=== PATIENT | female | born 1960 | race Caucasian/White ===

== ENCOUNTER → 2017-04-12 | Outpatient (CLI) | payer MEDICARE, MEDICAID ==
[~2017-04-12] MED LIST: ATEN-65 PO; BACDS PO; CIP500 PO; HYDR-2966 PO; LEFL10TA12 PO; LEFL20TA6 PO; LISI5TAB25 PO; LOR5 PO; METO50TA19 PO; OXYC-870 PO; PANT40TA65 PO; PENI-22 PO; POTA20TA94 PO; PRE10 PO; PRED-1 PO; PROM-110 PO; SULF500T48 PO
--- NOTE | 2017-04-12 10:32 | RADIOLOGY IMAGING REPORT ---
FACILITY: [facility] - [place] PATIENT NAME: Kourtney Huffman : 1960 MR: [id number] V: [id number] EXAM DATE: ORDERING PHYSICIAN: CRISTINA CROSS TECHNOLOGIST: [place] [facility] [place] Patient: Kourtney Huffman : 1960 Visit/Account:[id number] Date of Sevice: 04/12/2017 EXAMINATION: Abdominal ultrasound complete HISTORY: Five weeks vomiting off and on, diarrhea x4 weeks COMPARISON: None. FINDINGS: Gallbladder: There is a fixed shadowing calculus within the gallbladder the gallbladder wall is thick ened at 4.3 mm periods a positive Villela sign by technologist notation Liver: Liver appears extremely heterogeneous Common duct: Normal measuring 3.3 mm. Pancreas: Grossly unremarkable as imaged Spleen: Spleen appears extremely lobular and heterogeneous measuring 6.9 cm in length. Kidneys: Normal in size and echogenicity, the right measures 9.6 cm in length, and the left 10.6 cm. There is a moderate left hydronephrosis and a possible 1.2 cm calculus at the left UPJ Upper abdominal aorta and IVC: Negative. Ascites: None. IMPRESSION: Both the liver and spleen appear extremely heterogeneous There is a large fixed gallstone with a positive Villela sign and gallbladder wall thickening worrisom e for cholelithiasis with cholecystitis Moderate left hydronephrosis and possible 1.2 cm calculus at the left UPJ Report Dictated By: Gavi Rider MD at 04/12/2017 10:24 AM Report E-Signed By: Gavi Rider MD at 04/12/2017 10:29 AM WSN:[email or web address]
== END ==
LOC: US 09:08
PROVIDERS: ATTEND Nurse Practitioner Family
DX: K80.00 Calculus of gallbladder with acute cholecystitis without obstruction (principal); D73.89 Other diseases of spleen; K76.9 Liver disease, unspecified; N13.30 Unspecified hydronephrosis; R19.8 Other specified symptoms and signs involving the digestive system and abdomen
CPT/HCPCS: 76700

== ENCOUNTER → 2017-04-14 | Outpatient (CLI) | payer MEDICARE, MEDICAID ==
--- NOTE | 2017-04-13 17:43 | HISTORY AND PHYSICAL ---
DATE OF ADMISSION: April 19, 2017 CHIEF COMPLAINT Nausea, vomiting. HISTORY OF PRESENT ILLNESS This is a 57-year-old female with a one month history of nausea and vomiting, worse after eating. She has had some right upper quadrant pain. She has had some right flank pain. She has had no jaundice, no fever. Patient underwent an ultrasound examination which revealed cholelithiasis and some wall thickening in the gallbladder. She also had questionable hydronephrosis on the left with a kidney stone. PAST SURGICAL HISTORY * Appendectomy. * Cardiac stent placed. * Colonoscopy. * EGD with dilatation. * Knee operation. * Total hysterectomy. ALLERGIES No known allergies. CURRENT MEDICATIONS * Atorvastatin. * Hydrochlorothiazide. * Leflunomide. * Lisinopril. * Metoprolol. * Pantoprazole. * Prednisone. * Sulfasalazine. * Zofran. REVIEW OF SYSTEMS Significant for the history of hypertension and the atherosclerotic coronary heart disease. Denies any pulmonary disease, liver or kidney disease. No diabetes. No history of deep venous thrombosis. PHYSICAL EXAMINATION GENERAL: A 57-year-old female in no acute distress. LUNGS: Clear. HEART: Regular rate and rhythm. ABDOMEN: Soft. She has some mild tenderness in the right upper quadrant. No guarding or rigidity. IMPRESSION Cholelithiasis with cholecystitis. PLAN Laparoscopic cholecystectomy with intraoperative cholangiogram. We discussed the procedure, complications, recovery time. She seems to understand and wishes to proceed. RAPHAEL
[~2017-04-14] VITALS: Ht 157.5 cm; Wt 83.5 kg
[~2017-04-14] MED LIST changes: +LIDOCAINE/SOD BICARB 8.4% SYR ID ONE; +MIDAZOLAM 2 MG/2 ML VIAL IVP PRN; +NORMOSOL R SOLN(*) 1000 ML BAG 1,000 ML IV PRN; +cefOXitin/DEX(*) 2GM/50ML PREM 50 ML IVPB ONE
--- NOTE | 2017-04-14 13:49 | RADIOLOGY IMAGING REPORT ---
FACILITY: [facility] PATIENT NAME: Kourtney Huffman : 1960 MR: [id number] V: [id number] EXAM DATE: ORDERING PHYSICIAN: GERALD JOE TECHNOLOGIST: Location: [facility] Patient: Kourtney Huffman : 1960 Visit/Account:[id number] Date of Sevice: 04/14/2017 Exam type: CERVICAL SPINE 2 OR 3 VIEW History: RHEUMATOID ARTHRITIS Comparison: None. Findings: Neutral, extension and flexion views in lateral projection were submitted. There is no abnormal rufino on identified at C1-2. There is moderate to severe disc space narrowing at C5-6 with anterior weatherization installer ior spurring. There is moderate disc space narrowing at C6-7. Prevertebral soft tissues are normal IMPRESSION: 1. No abnormal motion identified at C1 to Spondylotic changes from C5 to C7 Report Dictated By: Gavi Rider MD at 04/14/2017 1:43 PM Report E-Signed By: Gavi Rider MD at 04/14/2017 1:44 PM WSN:[email or web address]
== END ==
LOC: RAD 08:00 → EDSTATUS 04-19 10:10
PROVIDERS: ATTEND Surgery
DX: M47.892 Other spondylosis, cervical region (principal)
CPT/HCPCS: 72040; 82040; 82247; 82310; 82374; 82435; 82565; 82947; 84075; 84132; 84155; 84295; 84450; 84460; 84520

== ENCOUNTER → 2017-04-19 | Outpatient (CLI) | payer MEDICARE, MEDICAID ==
[~2017-04-19] MED LIST changes: -LIDOCAINE/SOD BICARB 8.4% SYR ID ONE; -MIDAZOLAM 2 MG/2 ML VIAL IVP PRN; -NORMOSOL R SOLN(*) 1000 ML BAG 1,000 ML IV PRN; -cefOXitin/DEX(*) 2GM/50ML PREM 50 ML IVPB ONE
[2017-04-19 14:22] LABS: INR 1.05
== END ==
LOC: LAB 13:54
PROVIDERS: ATTEND Physician Assistant
DX: R94.39 Abnormal result of other cardiovascular function study (principal); I25.10 Atherosclerotic heart disease of native coronary artery without angina pectoris
CPT/HCPCS: 36415; 85027; 85610

== ENCOUNTER 2017-09-24 10:45 | Inpatient (IN) | payer MEDICARE, MEDICAID ==
[2017-09-24] VITALS (10 sets, daily range): BP systolic 91–134; BP diastolic 59–83
[~2017-09-24] VITALS: Ht 157.5 cm; Wt 76.2 kg
--- NOTE | 2017-09-24 10:49 | ER Report ---
History and Physical Time Seen By MD: 10:49 HPI/ROS CHIEF COMPLAINT: Epigastric/RUQ abdominal pain since yesterday afternoon HISTORY OF PRESENT ILLNESS: Patient is a 57-year-old female here with complaints of right upper quadrant abdominal pain with radiation to the midepigastric region which started yesterday evening. Patient reports that she has not had anything to eat since yesterday afternoon and has had intermittent nausea without vomiting. She denies fevers, chills, chest pain, shortness of breath, vaginal discharge, vaginal bleeding, dysuria. She does have a history significant for cardiac stent placements last of which was in April.She was noted at that time to have cholelithiasis however surgery was deferred at that time. She reports that the pain was initially sharp and kept her up last night and is now cramping, worse with movement. She denies taking medications for symptom management at home since onset. She does take pantoprazole and does have a prior history of EGD dilatation in the past. Patient is afebrile at time of evaluation, hemodynamically stable. REVIEW OF SYSTEMS: Constitutional: No fever, no chills. Eyes: No discharge. ENT: No sore throat. Cardiovascular: No chest pain, no palpitations. Respiratory: No cough, no shortness of breath. Gastrointestinal: + RUQ and epigastric abdominal pain w/ nausea Genitourinary: No hematuria. Musculoskeletal: No back pain. Skin: No rashes. Neurological: No headache. Allergies: Coded Allergies: No Known Allergies (Verified Allergy, Mild, 08/06/15) Home Meds Reported Medications Aspirin (Lo-Dose Aspirin EC) 81 Mg Tablet., EACH EAR DAILY 09/24/17 Ticagrelor (BRILINTA) 90 Mg Tablet, 90 MG PO BID 09/24/17 Prednisone 10 Mg Tab (PREDNISONE 10 MG TAB) 10 Mg Tablet, 5 MG PO QDAY, TAB 01/16/15 Sulfasalazine (SULFASALAZINE) 500 Mg Tablet, 500 MG PO BID 01/16/15 Leflunomide (LEFLUNOMIDE) 20 Mg Tablet, 20 MG PO DAILY 01/16/15 Metoprolol Succinate (METOPROLOL SUCCINATE) 50 Mg Tab.er.24h, 1 TAB PO QDAY, TAB 01/16/15 Lisinopril (LISINOPRIL) 5 Mg Tablet, 5 MG PO QDAY, TAB 01/16/15 Pantoprazole Sodium (PANTOPRAZOLE SODIUM) 40 Mg Tablet.dr, 40 MG PO QDAY, TAB.SR 01/16/15 Discontinued Reported Medications Hydrochlorothiazide (HYDROCHLOROTHIAZIDE) 25 Mg Tablet, 1 TAB PO QDAY, TAB 04/14/17 Discontinued Scripts Promethazine Hcl (PROMETHAZINE HCL) 25 Mg Tablet, 25 MG PO Q8H Y for NAUSEA/ VOMITING, #12 TAB Prov:MANUEL MURRAY PA-C 04/04/17 Oxycodone Hcl/Acetaminophen (PERCOCET 10-325 MG TABLET) 1 Each Tablet, 1 EACH PO Q4H Y for PAIN, #20 TAB Prov:NAILA PRETTY DO 08/06/15 Hx Smoking: No Smoking Status: Never Smoker Hx Substance Use Disorder: No Hx Alcohol Use: Yes Constitutional Vital Sign - Last 24 Hours 09/24/17 09/24/17 09/24/17 09/24/17 10:45 10:49 10:54 11:00 Temp 98.3 Pulse ??? 106 Resp 17 B/P (MAP) 137/95 137/95 (109) 139/90 (106) Pulse Ox 94 O2 Delivery Room Air 09/24/17 09/24/17 09/24/17 09/24/17 11:15 11:30 11:45 12:25 Pulse 79 B/P (MAP) 122/109 (113) 106/81 (89) 126/124 (125) 137/89 (105) Pulse Ox 87 98 09/24/17 09/24/17 09/24/17 09/24/17 12:30 12:45 13:00 13:15 Pulse 75 79 B/P (MAP) 133/89 (104) 132/89 (103) Pulse Ox 94 96 09/24/17 09/24/17 09/24/17 09/24/17 13:30 13:45 14:00 14:15 Pulse 68 77 B/P (MAP) 149/87 (107) 112/63 (79) Pulse Ox 95 93 Physical Exam General Appearance: The patient is alert, has no immediate need for airway protection and no signs of toxicity. + Uncomfortable secondary to abdominal pain /nausea Eyes: Pupils equal and round no pallor or injection. ENT, Mouth: Mucous membranes are moist. Respiratory: There are no retractions, lungs are clear to auscultation. Cardiovascular: Regular rate and rhythm. Gastrointestinal: Abdomen is soft and + RUQ Tenderness Neurological: No focal deficits Skin: Warm and dry, no rashes. Musculoskeletal: Neck is supple non tender. Extremities are nontender, nonswollen and have full range of motion. DIFFERENTIAL DIAGNOSIS: After history and physical exam differential diagnosis was considered for abdominal pain including but not limited to cholecystitis, gastritis, diverticulitis and urinary tract infection, Medical Decision Making Data Points Result Diagram: 09/25/17 0525 09/25/17 0525 Laboratory Hematology Test 09/24/17 11:37 09/24/17 15:13 09/24/17 15:20 Lactate 1.0 mmol/L (0.7-2.1) Total Bilirubin 0.8 mg/dl (0.2-1.3) Aspartate Amino Transf (AST/SGOT) 29 U/L (0-35) Alanine Aminotransferase (ALT/SGPT) 29 U/L (0-56) Alkaline Phosphatase 109 U/L (0-126) Troponin I < 0.012 ng/ml Total Protein 6.1 g/dl (6.3-8.2) Albumin 3.0 g/dl (3.5-5.0) Lipase 56 U/L (23-300) Stool Occult Blood (IFOB) Positive (NEGATIVE) Urine Color Makayla Urine Clarity Clear Urine pH 5.0 pH (4.8-9.5) Urine Specific Chandler 1.043 Urine Protein Negative mg/dL (NEGATIVE) Urine Glucose (UA) Negative mg/dL (NEGATIVE) Urine Ketones Trace mg/dL (NEGATIVE) Urine Blood Small (NEGATIVE) Urine Nitrite Positive (NEGATIVE) Urine Bilirubin Negative (NEGATIVE) Urine Urobilinogen Negative mg/dL (0.2-1.9) Urine Leukocyte Esterase Moderate (NEGATIVE) Urine RBC 5 /HPF (0-2/HPF) Urine WBC 39 /HPF (0-5/HPF) Urine WBC Clumps Few /HPF Urine Squamous Epithelial Cells None /LPF (NONE-FEW) Urine Bacteria Moderate /HPF (NONE-FEW) Urine Mucus Few /HPF (NONE-FEW) Chemistry Test 09/24/17 11:37 09/24/17 15:13 09/24/17 15:20 Lactate 1.0 mmol/L (0.7-2.1) Total Bilirubin 0.8 mg/dl (0.2-1.3) Aspartate Amino Transf (AST/SGOT) 29 U/L (0-35) Alanine Aminotransferase (ALT/SGPT) 29 U/L (0-56) Alkaline Phosphatase 109 U/L (0-126) Troponin I < 0.012 ng/ml Total Protein 6.1 g/dl (6.3-8.2) Albumin 3.0 g/dl (3.5-5.0) Lipase 56 U/L (23-300) Stool Occult Blood (IFOB) Positive (NEGATIVE) Urine Color Makayla Urine Clarity Clear Urine pH 5.0 pH (4.8-9.5) Urine Specific Chandler 1.043 Urine Protein Negative mg/dL (NEGATIVE) Urine Glucose (UA) Negative mg/dL (NEGATIVE) Urine Ketones Trace mg/dL (NEGATIVE) Urine Blood Small (NEGATIVE) Urine Nitrite Positive (NEGATIVE) Urine Bilirubin Negative (NEGATIVE) Urine Urobilinogen Negative mg/dL (0.2-1.9) Urine Leukocyte Esterase Moderate (NEGATIVE) Urine RBC 5 /HPF (0-2/HPF) Urine WBC 39 /HPF (0-5/HPF) Urine WBC Clumps Few /HPF Urine Squamous Epithelial Cells None /LPF (NONE-FEW) Urine Bacteria Moderate /HPF (NONE-FEW) Urine Mucus Few /HPF (NONE-FEW) Urinalysis Test 09/24/17 15:20 Urine Color Makayla Urine Clarity Clear Urine pH 5.0 pH (4.8-9.5) Urine Specific Chandler 1.043 Urine Protein Negative mg/dL (NEGATIVE) Urine Glucose (UA) Negative mg/dL (NEGATIVE) Urine Ketones Trace mg/dL (NEGATIVE) Urine Blood Small (NEGATIVE) Urine Nitrite Positive (NEGATIVE) Urine Bilirubin Negative (NEGATIVE) Urine Urobilinogen Negative mg/dL (0.2-1.9) Urine Leukocyte Esterase Moderate (NEGATIVE) Urine RBC 5 /HPF (0-2/HPF) Urine WBC 39 /HPF (0-5/HPF) Urine WBC Clumps Few /HPF Urine Squamous Epithelial Cells None /LPF (NONE-FEW) Urine Bacteria Moderate /HPF (NONE-FEW) Urine Mucus Few /HPF (NONE-FEW) EKG/Imaging EKG Interpretation 12 lead EKG: Normal sinus rhythm, rate 94, no ischemic changes Rhythm: normal sinus rhythm [place]: normal QRS: normal ST segments: normal Monitor Interpretation: Normal Sinus Rhythm Imaging EXAMINATION: Focused right upper quadrant ultrasound COMPARISON: CT same day. HISTORY: Right upper quadrant abdominal pain. Findings: Standard right upper quadrant abdominal ultrasound is performed. Pancreas: Visualized portions of the pancreas are unremarkable. Liver and portal vein: Negative. Gallbladder and biliary system: 2.4 cm echogenic and shadowing mobile stone. No wall thickening or pericholecystic fluid. Visualized bile ducts are within normal limits. Visualized aorta and IVC: Negative. Kidneys: The right kidney measures 9.9 x 5.6 x 5.3 cm . No renal mass, stone, or hydronephrosis. Ascites: None. IMPRESSION: Cholelithiasis with no sonographic findings of cholecystitis. EXAMINATION: CT abdomen and pelvis with contrast COMPARISON: None. HISTORY: Epigastric abdominal pain and nausea. PROCEDURE: Multiplanar contrast enhanced CT of the abdomen and pelvis with 75 mL intravenous Isovue 370. One of the following dose optimization techniques was utilized in the performance of this exam: Automated exposure control; adjustment of the mA and/or kV according to the patient's size; or use of an iterative reconstruction technique. Specific details can be referenced in the facility's radiology CT exam operational policy. FINDINGS: Visualized thorax: Coronary calcifications. Liver: Negative. Gallbladder and biliary system: 2.1 cm densely calcified gallstone. No gallbladder wall thickening or pericholecystic inflammation. Spleen: Mildly lobular spleen. Midpole approximately 2.5 cm region of peripheral decreased parenchymal attenuation with focal subtle perisplenic infiltration. Pancreas: Negative. Adrenal glands: Negative. Kidneys and bladder: Left kidney mild to moderate hydronephrosis due to a 10 mm stone at the ureteropelvic junction. No other left or right-sided radiopaque urolithiasis is identified. No renal mass. Urinary bladder is unremarkable. Vessels: Aortoiliac mild atherosclerosis. No abdominal aortic aneurysm. Portal venous system and IVC are unremarkable. Bowel and mesentery: Small hiatal hernia. No gastric distention. No small bowel obstruction or inflammation. Appendectomy. Distal ascending colon 7 cm long segment of marked colonic wall thickening, edema, and pericolonic inflammation. No pneumatosis or extraluminal gas or fluid. Minimal stool in the colon. Distal descending colon and sigmoid mild diverticulosis. Posterior perianal 2.7 x 1.5 cm superficial fluid collection. Pelvic organs: Hysterectomy. No adnexal mass. Lymph nodes: No adenopathy. Free air/free fluid: None. Abdominal wall and osseous structures: Tiny fat-containing umbilical hernia. L4- L5 advanced degenerative disc disease. No acute osseous abnormality. IMPRESSION: 1. Distal ascending colon segmental wall inflammation is most suggestive of a nonspecific colitis (either infectious, inflammatory, or ischemic). Malignancy is considered less likely although if not recently performed, consider referral for colonoscopy once the patient's acute symptoms have resolved. 2. Mild to moderate left-sided hydronephrosis due to a 10 mm stone at the ureteropelvic junction. 3. Indeterminate 2.7 x 1.5 cm perianal fluid collection. Although this could be a sebaceous cyst or potentially hemorrhoid, correlation with any evidence of a perianal abscess is recommended. 4. Spleen mid pole peripheral region of decreased enhancement with subtle adjacent perisplenic inflammation. Although nonspecific, the appearance is suggestive of a splenic infarct. A splenic mass or infectious process are considered less likely although CT follow-up is recommended. 5. Cholelithiasis. No CT findings of cholecystitis. 6. Additional nonacute findings as described above. ED Course/Re-evaluation Clinical Indication for ER IV: Hydration, IV Access ED Course Patient is a 57-year-old female here with complaints of right upper quadrant midepigastric abdominal pain since yesterday evening which was initially sharp and is now cramping and worse with movement, last oral intake was yesterday afternoon. She has a history of cholelithiasis as well as cardiac disease, last stent was placed April. EKG showed no acute ischemic changes. Cardiac enzymes were negative. Patient reports having prior appendectomy however has not had a cholecystectomy. EGD was completed in the past with a dilatation per patient report. PPI is taken daily. She is hemodynamically stable at time of evaluation , afebrile. She received Zofran, fluids, analgesia for symptom management. Ultrasound of gallbladder showed cholelithiasis without sonographic findings of cholecystitis. Patient was noted to have hydronephrosis of the left kidney with a 10 mm obstructing stone at the UPJ for which urology was contacted. She is also noted to have ascending colitis as well as possible abscess fluid collection in the perirectal area and fell the patient has denied symptoms of tenesmus. Discussed the patient with surgery on-call Dr. Christine. Patient was further discussed with Dr. Magallanes of the hospitalist service who accepted the patient for ongoing antimicrobial coverage. Patient was treated with Zosyn for antimicrobial coverage. Patient was admitted for further care. Decision to Disposition Date: Sep 24, 2017 Decision to Disposition Time: 16:45 Depart Departure Latest Vital Signs Vital Signs Date Time Temp Pulse Resp B/P (MAP) Pulse Ox O2 Delivery O2 Flow Rate FiO2 09/24/17 14:15 77 93 09/24/17 14:00 112/63 (79) 09/24/17 10:49 98.3 17 Room Air Impression: Primary Impression: Acute colitis Additional Impressions: Cholelithiases Nephrolithiasis Hydronephrosis Condition: Improved Disposition: Admitted from ER Referrals: CAROL DOTSON MD (PCP) Problem Qualifiers KASEY SÁNCHEZ DO Sep 24, 2017 10:49
[2017-09-24] MEDS ORDERED: NS(*) 0.9% 1000 ML BAG 1,000 ML IV ONE (11:02)
[2017-09-24] MEDS ORDERED: fentaNYL CITR 100 MCG/2 ML AMP IVP ONE (11:05)
[2017-09-24] MEDS ORDERED: ONDANSETRON 4 MG/2 ML VIAL IVP ONE (11:05)
[2017-09-24 11:30] LABS: PLATELET COUNT, AUTOMATED 172 K/uL (150-450)
[2017-09-24] MEDS ORDERED: IOPAMIDOL 76% 75 ML INFUS BTL 75 ML ONE (12:20)
--- NOTE | 2017-09-24 14:10 | RADIOLOGY IMAGING REPORT ---
FACILITY: [facility] PATIENT NAME: Kourtney Huffman : 1960 MR: [id number] V: [id number] EXAM DATE: ORDERING PHYSICIAN: KASEY SÁNCHEZ TECHNOLOGIST: [place] [facility] [place] Kourtney [place] : 1960 Visit/Account:[id number] Date of Sevice: 09/24/2017 EXAMINATION: CT abdomen and pelvis with contrast COMPARISON: None. HISTORY: Epigastric abdominal pain and nausea. PROCEDURE: Multiplanar contrast enhanced CT of the abdomen and pelvis with 75 mL intravenous Isovue 3 70. One of the following dose optimization techniques was utilized in the performance of this exam: A utomated exposure control; adjustment of the mA and/or kV according to the patient's size; or use of an iterative reconstruction technique. Specific details can be referenced in the facility's radiolo gy CT exam operational policy. FINDINGS: Visualized thorax: Coronary calcifications. Liver: Negative. Gallbladder and biliary system: 2.1 cm densely calcified gallstone. No gallbladder wall thickening or pericholecystic inflammation. Spleen: Mildly lobular spleen. Midpole approximately 2.5 cm region of peripheral decreased parenchyma l attenuation with focal subtle perisplenic infiltration. Pancreas: Negative. Adrenal glands: Negative. Kidneys and bladder: Left kidney mild to moderate hydronephrosis due to a 10 mm stone at the ureterop elvic junction. No other left or right-sided radiopaque urolithiasis is identified. No renal mass. Ur inary bladder is unremarkable. Vessels: Aortoiliac mild atherosclerosis. No abdominal aortic aneurysm. Portal venous system and IVC are unremarkable. Bowel and mesentery: Small hiatal hernia. No gastric distention. No small bowel obstruction or inflam mation. Appendectomy. Distal ascending colon 7 cm long segment of marked colonic wall thickening, baldemar ma, and pericolonic inflammation. No pneumatosis or extraluminal gas or fluid. Minimal stool in the c olon. Distal descending colon and sigmoid mild diverticulosis. Posterior perianal 2.7 x 1.5 cm superf icial fluid collection. Pelvic organs: Hysterectomy. No adnexal mass. Lymph nodes: No adenopathy. Free air/free fluid: None. Abdominal wall and osseous structures: Tiny fat-containing umbilical hernia. L4-L5 advanced degenerat bernice disc disease. No acute osseous abnormality. IMPRESSION: 1. Distal ascending colon segmental wall inflammation is most suggestive of a nonspecific colitis (ei ther infectious, inflammatory, or ischemic). Malignancy is considered less likely although if not rec ently performed, consider referral for colonoscopy once the patient's acute symptoms have resolved. 2. Mild to moderate left-sided hydronephrosis due to a 10 mm stone at the ureteropelvic junction. 3. Indeterminate 2.7 x 1.5 cm perianal fluid collection. Although this could be a sebaceous cyst or p otentially hemorrhoid, correlation with any evidence of a perianal abscess is recommended. 4. Spleen mid pole peripheral region of decreased enhancement with subtle adjacent perisplenic inflam mation. Although nonspecific, the appearance is suggestive of a splenic infarct. A splenic mass or in fectious process are considered less likely although CT follow-up is recommended. 5. Cholelithiasis. No CT findings of cholecystitis. 6. Additional nonacute findings as described above. Results were discussed with KASEY SÁNCHEZ at 09/24/2017 2:05 PM. Report Dictated By: Williams Soto MD at 09/24/2017 1:47 PM Report E-Signed By: Williams Soto MD at 09/24/2017 2:06 PM [id number]
[2017-09-24] MEDS ORDERED: PIPERACILLIN/TAZO*3.375GM VIAL 3.375 GM in NS(*) 0.9% 100 ML ADDVANT BAG 100 ML IVPB ONE (14:35)
--- NOTE | 2017-09-24 14:35 | RADIOLOGY IMAGING REPORT ---
FACILITY: [facility] - [place] PATIENT NAME: Kourtney Huffman : 1960 MR: [id number] V: [id number] EXAM DATE: ORDERING PHYSICIAN: KASEY SÁNCHEZ TECHNOLOGIST: Location: [facility] Patient: Kourtney Huffman : 1960 Visit/Account:[id number] Date of Sevice: 09/24/2017 EXAMINATION: Focused right upper quadrant ultrasound COMPARISON: CT same day. HISTORY: Right upper quadrant abdominal pain. Findings: Standard right upper quadrant abdominal ultrasound is performed. Pancreas: Visualized portions of the pancreas are unremarkable. Liver and portal vein: Negative. Gallbladder and biliary system: 2.4 cm echogenic and shadowing mobile stone. No wall thickening or pe richolecystic fluid. Visualized bile ducts are within normal limits. Visualized aorta and IVC: Negative. Kidneys: The right kidney measures 9.9 x 5.6 x 5.3 cm . No renal mass, stone, or hydronephrosis. Ascites: None. IMPRESSION: Cholelithiasis with no sonographic findings of cholecystitis. Report Dictated By: Williams Soto MD at 09/24/2017 2:29 PM Report E-Signed By: Williams Soto MD at 09/24/2017 2:31 PM WSN:[id number]
[2017-09-24] MEDS ORDERED: NS(*) 0.9% 100 ML BAG 100 ML ONE (14:41)
--- NOTE | 2017-09-24 15:37 | General Surgery Consultation ---
History of Present Illness Requesting Physician Dr Goddard, [facility] Reason for Consult right upper quadrant pain Chief Complaint right upper quadrant pain History of Present Illness 57 year old female with a known history of cholelithiasis who developed right upper quadrant pain yesterday. The pain radiated to the left side of abdomen. No fevers. No jaundice. No acholic stools. She has constant diarrhea 2/2 her RA meds per her report. No blood in stool. She did have some mild nausea. The pain subsided at some point last night and then recurred today. She presented to ED and was noted to be afebrile and have a normal WBC. She underwent US that showed a solitary stone in the gallbladder and a normal caliber CBD 3mm and no evidence of cholecystitis. CT scan was then performed with IV contrast which noted a large stone in gallbladder 3cm but no CT evidence of cholecystitis. She was noted to have right sided non-specific colitis that was adjacent to the gallbladder. She was noted to have a 2cm perianal fluid collection. In addition she was found to have left sided hydro with an obstructing stone. Her urinalysis showed a UTI. She has a relatively new cardiac stent and is maintained on Brilinta for this. She has been waiting to have her gallbladder out but has not been cleared by cardiology for this yet. She is also on 3mg of prednisone per day. History Home Meds Active Scripts Promethazine Hcl (PROMETHAZINE HCL) 25 Mg Tablet, 25 MG PO Q8H Y for NAUSEA/ VOMITING, #12 TAB Prov:MANUEL MURRAY PA-C 04/04/17 Oxycodone Hcl/Acetaminophen (PERCOCET 10-325 MG TABLET) 1 Each Tablet, 1 EACH PO Q4H Y for PAIN, #20 TAB Prov:NAILA PRETTY DO 08/06/15 Reported Medications Hydrochlorothiazide (HYDROCHLOROTHIAZIDE) 25 Mg Tablet, 1 TAB PO QDAY, TAB 04/14/17 Prednisone 10 Mg Tab (PREDNISONE 10 MG TAB) 10 Mg Tablet, 5 MG PO QDAY, TAB 01/16/15 Sulfasalazine (SULFASALAZINE) 500 Mg Tablet, 500 MG PO BID 01/16/15 Leflunomide (LEFLUNOMIDE) 20 Mg Tablet, 20 MG PO DAILY 01/16/15 Metoprolol Succinate (METOPROLOL SUCCINATE) 50 Mg Tab.er.24h, 1 TAB PO QDAY, TAB 01/16/15 Lisinopril (LISINOPRIL) 5 Mg Tablet, 5 MG PO QDAY, TAB 01/16/15 Pantoprazole Sodium (PANTOPRAZOLE SODIUM) 40 Mg Tablet.dr, 40 MG PO QDAY, TAB.SR 01/16/15 Allergies: Coded Allergies: No Known Allergies (Verified Allergy, Mild, 08/06/15) Review of Systems Gastrointestinal: Nausea, Diarrhea, Abdominal Pain Exam Vital Signs Vital Signs Date Time Temp Pulse Resp B/P (MAP) Pulse Ox O2 Delivery O2 Flow Rate FiO2 09/24/17 14:15 77 93 09/24/17 14:00 112/63 (79) 09/24/17 10:49 98.3 17 Room Air General Appearance: Alert, Awake, No Acute Distress, Afebrile Eyes: PERRLA ENT: Normal Neck: No Masses Cardiovascular: Regular Rate and Rhythm Respiratory: Clear to Auscultation Chest: No Masses GI: Abd Soft and Non-Tender, Other (no tenderness in the right abdomen. very soft and non-distended. no organomegaly) Extremities: Perfused Integumentary: Skin Intact without Lesion / Mass Psych: Alert & Oriented X3 Medical Decision Making Data Points Result Diagram: 09/24/17 1100 09/24/17 1137 EKG / Imaging Monitor Interpretation: Normal Sinus Rhythm Assessment and Plan Problems: (1) Colitis Status: Acute Assessment & Plan: Unclear etiology. No recent exposure to antibiotics, although the patient is chronically immunosuppressed. She has a first degree family member diagnosed with colon cancer. Her last colonoscopy was four years ago and was reportedly normal. She has chronic diarrhea. No blood in stools. Hemoccult test sent in the ED. The perianal fluid collection noted on the scan is a external hemorrhoid. Her anal exam was otherwise normal. Dr. Magallanes plans to admit to hospitalist service. I will follow along as applications consultant. check Cdiff. continue zosyn serial abdominal exams, I will follow along will need outpatient colonoscopy (2) Cholelithiases Assessment & Plan: She has had symptoms in the past from her very large gallstone, but treatment of this is delayed by cardiology. I do not think this is the source of her acute pain currently. No right upper quadrant tenderness. I suspect the colitis is causing her pain. Regardless, she will need her gallbladder removed at some point electively when her stacker and sorter operator is comfortable with her interrupting her antiplatelet therapy. (3) Ureterolithiasis Assessment & Plan: Per urology. Time Spent: > 30 min Venous Thromboembolism VTE Risk Patient's VTE Risk: High VTE Diagnostic Test 2 Days Prior to Admit: No Antithrombotics Is Pt On Any Antithrombotics?: No BLANCHE ANDERSON MD Sep 24, 2017 15:37
[2017-09-24] MEDS ORDERED: IOPAMIDOL-200 50 ML VIAL IS ONE (16:10)
[2017-09-24] MEDS ORDERED: LEVOFLOXACIN/D5W*500 MG/100 ML 100 ML IVPB ONE (16:17)
[2017-09-24] MEDS ORDERED: BELLADONNA ALK/OPIUM 60MG SUPP PR ONE (16:20)
--- NOTE | 2017-09-24 16:25 | EKG ---
FAC[place]: [facility] [place]IENT NAME: BRODIE ESPINOZA : [id number] MR: [id number] V: [id number] EXAM DATE: ORDERING PHYSICIAN: KASEY SÁNCHEZ TECHNOLOGIST: ANNETTE Donaldson Reason : ABDOMINAL PAIN Blood Pressure : / mmHG Vent. Rate : 094 BPM Atrial Rate : 094 BPM P-R Int : 158 ms QRS Dur : 074 ms QT Int : 352 ms P-R-T Axes : 019 -18 010 degrees QTc Int : 440 ms Normal sinus rhythm Low voltage QRS Cannot rule out Anteroseptal infarct (cited on or before 16-JAN-2015) Abnormal ECG When compared with ECG of 16-JAN-2015 18:32, Questionable change in initial forces of Anterior leads Confirmed by MARY BAH ([id number]) on 09/25/2017 2:48:30 PM Referred By: PRINCESS Confirmed By:MARY BAH
[2017-09-24] MEDS ORDERED: METOPROLOL TART 5 MG/5 ML VIAL ONE (16:27)
[2017-09-24] MEDS ORDERED: DEXAMETHASONE SOD PHOS 10MG/ML ONE (16:27)
[2017-09-24] MEDS ORDERED: SUCCINYLCHOL CHL 200MG/10ML VL ONE (16:27)
[2017-09-24] MEDS ORDERED: PROPOFOL EMUL(*) 10MG/ML 20 ML 20 ML ONE (16:27)
[2017-09-24] MEDS ORDERED: ONDANSETRON 4 MG/2 ML VIAL ONE (16:27)
[2017-09-24] MEDS ORDERED: TICA90TA PO (16:30)
[2017-09-24] MEDS ORDERED: ASPI-1167 EACH EAR (16:32)
--- NOTE | 2017-09-24 17:04 | CONSULTATION ---
EVENT DATE: September 24, 2017 REASON FOR CONSULTATION Kidney stone. HISTORY OF PRESENT ILLNESS Patient is a 57-year-old white female who presents to the Emergency Room with right upper quadrant and diffuse epigastric pain. She was evaluated with a CT scan which showed several abnormal findings including a nonspecific colitis, a 2.7 perianal fluid collection, a questionable splenic infarct, gallstones, as well as having a 10 mm stone at the left UPJ with a moderate hydronephrosis on my review of the films. She had a prompt function on this side. Delayed imaging was not obtained. Of note, the patient had an abdominal ultrasound performed on the 12 of April of this year which also showed moderate left hydronephrosis down to 10 mm stone at the UPJ. It appears these findings are similar in nature without significant change. The patient denies prior history of kidney stones, left flank pain, dysuria, hematuria, or fever/chills. Urinalysis performed with a Galeano catheter placement does show 39 white cells per high-power field, 5 red blood cells per high-power field with moderate bacteria. She has small blood on dip, a positive nitrate, and moderate leukocyte esterase. Given these findings of a possible infection, we will plan to do a stent placement and start her on broad-spectrum antibiotics pending urine culture results. She is being followed on the hospitalist service, by myself, and a general surgeon who has evaluated her and feels she has no acute surgical problems which require intervention. PAST MEDICAL HISTORY 1. CT, status post stent placement. 2. Hypertension. 3. Gallbladder disease. 4. Gastroesophageal reflux. 5. Rheumatoid arthritis. 6. History of alcohol use. PAST SURGICAL HISTORY 1. Hysterectomy. 2. Appendectomy. 3. Cardiac cath with stent placement. 4. Bilateral cataracts. CURRENT MEDICINES 1. Hydrochlorothiazide. 2. Lisinopril. 3. Metoprolol. 4. Omeprazole. 5. Prednisone. 6. Promethazine. 7. Sulfasalazine. 8. Leflunomide. ALLERGIES No known drug allergies. SOCIAL HISTORY Patient is , lives in [place], [place]. REVIEW OF SYSTEMS Patient denies current chest pain, shortness of breath, nausea, vomiting, productive cough, flank pain, gross hematuria, dysuria, or change in bowel habits. PHYSICAL EXAMINATION GENERAL: Patient is a well-developed, white female in no acute distress. HEENT: Normocephalic, atraumatic. CHEST: Clear to auscultation bilaterally. CARDIOVASCULAR: Regular rate and rhythm. ABDOMEN: Soft, nontender. No masses are palpated. BACK: Normal-appearing spine without CVAT. GENITOURINARY: Deferred to the OR. EXTREMITIES: Without clubbing, cyanosis, or edema. NEUROLOGIC: Nonfocal. IMPRESSION A 57-year-old white female with a six-month history of a 1 cm left ureteropelvic junction stone with moderate hydronephrosis. She has no evidence of acute obstruction; however, she has a possible infection by urinalysis and vague abdominal pain. PLAN We will perform anesthetic cystoscopy with stent placement and broad-spectrum antibiotics to cover her for possible infection with the stone. RAPHAEL
[2017-09-24] MEDS ORDERED: LR(*) 1000 ML BAG 1,000 ML ONE (17:14)
[2017-09-24] MEDS ORDERED: PHENAZOPYRIDINE 200 MG TAB PO PRN (17:30)
[2017-09-24] MEDS ORDERED: OXYBUTYNIN CHL XL 5 MG TABCR PO PRN (17:30)
--- NOTE | 2017-09-24 18:04 | RADIOLOGY IMAGING REPORT ---
FACILITY: [facility] - [place], [place] PATIENT NAME: Kourtney Huffman : 1960 MR: [id number] V: [id number] EXAM DATE: ORDERING PHYSICIAN: ANURADHA BURKETT TECHNOLOGIST: Location: [facility] - [place] Patient: Kourtney Huffman : 1960 Visit/Account:[id number] Date of Sevice: 09/24/2017 INTRAOPERATIVE FLUOROSCOPY Comparison: CT same day. History: Hematuria with left-sided stent placement. Findings: Total fluoroscopy time is 0.23 minutes. 17.87 mGy. Multiple intraoperative fluoroscopic images demonstrate a moderately dilated left pelvicalyceal syste m with a ureteropelvic junction urolithiasis. Normally positioned ureteral stent at the conclusion of the study. Cholelithiasis. IMPRESSION: Intraoperative fluoroscopy. Please refer to the operative report for further discussion. Report Dictated By: Williams Soto MD at 09/24/2017 5:55 PM Report E-Signed By: Williams Soto MD at 09/24/2017 5:59 PM WSN:[id number]
[2017-09-24] MEDS ORDERED: ACETAMINOPHEN 325 MG TAB PO PRN (18:30)
[2017-09-24] MEDS ORDERED: ONDANSETRON 4 MG/2 ML VIAL IVP PRN (18:30)
[2017-09-24] MEDS ORDERED: oxyCODONE HCL 5 MG CAP PO PRN (18:30)
--- NOTE | 2017-09-24 18:31 | History & Physical ---
History of Present Illness Chief Complaint RUQ and mid epigastric pain History of Present Illness Mrs. Huffman is a 57-year-old white female with PMH of Rheumatoid Arthritis, Cholelithiasis, CAD s/p stent on Brilinta who presents to the Emergency Room with right upper quadrant and diffuse epigastric pain. She was evaluated with a CT scan which showed several abnormal findings including a nonspecific colitis , a 2.7 perianal fluid collection, a questionable splenic infarct, gallstones, as well as having a 10 mm stone at the left UPJ with a moderate hydronephrosis on the CT scan. She had a prompt function on this side. Delayed imaging was not obtained. Of note, the patient had an abdominal ultrasound performed on the 12 of April of this year which also showed moderate left hydronephrosis down to 10 mm stone at the UPJ. It appears these findings are similar in nature without significant change. The patient denies prior history of kidney stones, left flank pain, dysuria, hematuria, or fever/chills. Urinalysis performed with a Galeano catheter placement does show 39 white cells per high- power field, 5 red blood cells per high-power field with moderate bacteria. She has small blood on dip, a positive nitrate, and moderate leukocyte esterase. Given these findings of a possible infection, we will plan to do a stent placement and start her on broad-spectrum antibiotics pending urine culture results. Patient was also evaluated by surgery and advised to manage medically with antibiotics. I discussed the case with SAVANAH and Dr. Graff at length and agreed with the plan. I admitted the patient for further evaluation and management. History Home Meds Reported Medications Aspirin (Lo-Dose Aspirin EC) 81 Mg Tablet.dr EACH EAR DAILY 09/24/17 Ticagrelor (BRILINTA) 90 Mg Tablet, 90 MG PO BID 09/24/17 Prednisone 10 Mg Tab (PREDNISONE 10 MG TAB) 10 Mg Tablet, 5 MG PO QDAY, TAB 01/16/15 Sulfasalazine (SULFASALAZINE) 500 Mg Tablet, 500 MG PO BID 01/16/15 Leflunomide (LEFLUNOMIDE) 20 Mg Tablet, 20 MG PO DAILY 01/16/15 Metoprolol Succinate (METOPROLOL SUCCINATE) 50 Mg Tab.er.24h, 1 TAB PO QDAY, TAB 01/16/15 Lisinopril (LISINOPRIL) 5 Mg Tablet, 5 MG PO QDAY, TAB 01/16/15 Pantoprazole Sodium (PANTOPRAZOLE SODIUM) 40 Mg Tablet.dr, 40 MG PO QDAY, TAB.SR 01/16/15 Discontinued Reported Medications Hydrochlorothiazide (HYDROCHLOROTHIAZIDE) 25 Mg Tablet, 1 TAB PO QDAY, TAB 04/14/17 Discontinued Scripts Promethazine Hcl (PROMETHAZINE HCL) 25 Mg Tablet, 25 MG PO Q8H Y for NAUSEA/ VOMITING, #12 TAB Prov:MANUEL MURRAY PA-C 04/04/17 Oxycodone Hcl/Acetaminophen (PERCOCET 10-325 MG TABLET) 1 Each Tablet, 1 EACH PO Q4H Y for PAIN, #20 TAB Prov:NAILA PRETTY DO 08/06/15 Allergies: Coded Allergies: No Known Allergies (Verified Allergy, Mild, 08/06/15) Hx Smoking: No Smoking Status: Never Smoker Caffeine Intake: Coffee Caffeine/Cups Per Day: HASNT HAD IN OVER A MONTH Hx Alcohol Use: Yes Hx Substance Use Disorder: No Social Drug Use: Never Review of Systems Constitutional: No Fever, No Weight Loss, No Weight Gain, No Chills Neurological: No Confusion, No Weakness, No Dizziness Cardiovascular: No Chest Pain, No Palpitations Respiratory: No Shortness of Breath, No Cough Gastrointestinal: No Nausea, No Vomiting, No Diarrhea, No Dysphagia, No Constipation, No Hematemesis, Abdominal Pain Genitourinary: No Dysuria, No Hematuria Musculoskeletal: No Pain, No Sprain, No Strain Psychiatric: No Depression, No Anxiety Exam Vital Signs Vital Signs Date Time Temp Pulse Resp B/P (MAP) Pulse Ox O2 Delivery O2 Flow Rate FiO2 09/24/17 20:30 68 16 117/73 (88) 96 Nasal Cannula 1.0 09/24/17 19:45 98.0 General Appearance: Alert, Awake, No Acute Distress, Afebrile Neuro: No Gross deficits Eyes: PERRLA ENT: Normal Neck: No Masses Cardiovascular: Normal Rhythm & Peripheral Pulses Respiratory: No Respiratory Distress GI: Abd Soft and Non-Tender (mild tenderness in the L-flank area on deep palpation, No R/G/D) Musculoskeletal: No Weakness/Pain Extremities: Soft and Non Tender Integumentary: Skin Intact without Lesion / Mass Psych: Alert & Oriented X3, Appropriate Mood & Affect Medical Decision Making Data Points Result Diagram: 6/16/18 1100 09/24/17 1137 Pre-Admit Course ED Medications reviewed Medical Record Review: Yes Assessment and Plan Problems: (1) Acute pyelonephritis Status: Acute Assessment & Plan: Acute Pyelonephritis due to obstructive Uropathy. I will admit the patient for further evaluation and management. I will start Zosyn 3.375gm IV q 6h s/p ureteral stent IVF as per surgery I will start Percoset 5/325mg as needed SCD's for DVT Protonix 40mg po qd for GIP (2) Hydronephrosis concurrent with and due to calculi of kidney and ureter Status: Chronic Assessment & Plan: Chronic hydronephrosis s/p ureteral stent by Dr. Graff I will start Zosyn 3.375gm IV q 6h (3) Acute colitis Status: Acute Assessment & Plan: I will start Zosyn 3.375gm IV q 6h I will resume her home meds (4) Cholelithiases Status: Chronic Assessment & Plan: She has had symptoms in the past from her very large gallstone, but treatment of this is delayed by cardiology. I do not think this is the source of her acute pain currently. No right upper quadrant tenderness. I suspect the colitis is causing her pain. Regardless, she will need her gallbladder removed at some point electively when her dampener operator is comfortable with her interrupting her antiplatelet therapy. Central Venous Access Medical Necessity for Access: IV Access, Medication Administration Time Spent on Plan of Care: > 30 min Venous Thromboembolism VTE Risk Physician Assess for VTE Risk: Yes Patient's VTE Risk: Low VTE Diagnostic Test 2 Days Prior to Admit: No Antithrombotics Is Pt On Any Antithrombotics?: No Exam Sepsis Risk: No Definite Risk ART BOWDEN MD Sep 24, 2017 18:31
--- NOTE | 2017-09-24 18:54 | OPERATIVE REPORT 1 ---
EVENT DATE: September 24, 2017 SURGEON: Wicho Graff MD ANESTHESIOLOGIST: Issa Milligan MD ANESTHESIA: General anesthetic. PREOPERATIVE DIAGNOSIS Left ureteropelvic junction stone, 1 cm. POSTOPERATIVE DIAGNOSIS Left ureteropelvic junction stone, 1 cm. PROCEDURES PERFORMED 1. Cystoscopy. 2. Left retrograde pyelogram. 3. Left internal double-J ureteral stent placement. ESTIMATED BLOOD LOSS Minimal. INTRAVENOUS FLUIDS Crystalloid. DRAINS 6-Namibian x 26 cm Contour stent on left and 16-Namibian Galeano catheter. COMPLICATIONS None. CONDITION Patient taken to the recovery room awake and in stable condition. STATEMENT OF MEDICAL NECESSITY Patient is a 57-year-old white female who presents to the Emergency Room with diffuse abdominal pain. A CAT scan was performed, and she was noted to have a 1 cm stone at her left UPJ with some moderate hydronephrosis. This appears unchanged from a renal ultrasound performed in early April. Her creatinine was 0.8. Her urinalysis was consistent with possible infection. Therefore, she is now being brought to the operating room for planned stent placement for left renal decompression. DESCRIPTION OF OPERATION PERFORMED Patient was brought to the operating room. After general anesthetic was obtained, she was placed in the dorsal lithotomy position and prepped and draped in the usual sterile manner. Anesthetic cystoscopy was performed using the 21-Namibian rigid scope and 30-degree lens. She had no bladder anomaly. She had a smooth mucosa. There were no stones or other foreign material. Her ureteral orifices were slit-like in appearance, both effluxing clear urine. The press setter film showed retained contrast on the left side with moderate hydronephrosis at the renal pelvis and caliceal system. However, she did have contrast in the proximal mid and distal ureters beyond the stone. At this point , a 6-Namibian access catheter was advanced up the left ureter in a retrograde manner with fluoroscopic imaging until the area of the stone was encountered. Gentle manipulation at this area was unsuccessful in passing the catheter beyond this. Therefore, a dilute mixture of contrast material and lidocaine jelly was injected in the lumen of the access catheter. Under real-time fluoroscopy, I could see the contrast moving around the stone into the renal pelvis. A 0.035 Super [place] wire was advanced in the lumen of the access catheter, and after several minutes of manipulation, I was eventually able to pass this wire beyond this stone into the renal pelvis. I advanced the access catheter over this wire and removed the wire and replaced it with a Sensor double floppy. The access catheter was removed, and the Sensor wire was used to place a 6-Namibian x 26 cm PercuFlex Plus stent. Good curling was noted in the renal pelvis by fluoroscopy, and good curling was noted in the bladder by direct vision. The scope was removed and a 16-Namibian Galeano catheter placed with 10 mL in the balloon. Bimanual exam was performed. She had a normal- appearing urethral meatus and vaginal introitus. She had a large-appearing fatty skin tag at approximately the 10 o'clock position to the rectum. Rectal exam performed was no evidence of masses or other anomalies. A B and O suppository was given per rectum. She was then awakened in the operating room and taken to the recovery area in stable condition. PLAN The plan will be to allow the patient to be admitted to the hospitalist service for broad-spectrum antibiotics and for evaluation of her other medical issues. After these are cleared, we will perform definitive stone treatment in two to four weeks and removal of the stent at that time. RAPHAEL
[2017-09-24] MEDS: oxyCODONE HCL 5 MG CAP PO PRN (19:41)
[2017-09-24] MEDS: sulfaSALAzine 500 MG TAB PO SCH (20:32)
[2017-09-24] MEDS: PIPERACILLIN/TAZO*3.375GM VIAL 3.375 GM in NS(*) 0.9% 100 ML ADDVANT BAG 100 ML IVPB SCH (20:32)
[2017-09-25] VITALS: BP 90/61
[2017-09-25] MEDS: PIPERACILLIN/TAZO*3.375GM VIAL 3.375 GM in NS(*) 0.9% 100 ML ADDVANT BAG 100 ML IVPB SCH ×2 (02:28→09:02)
[2017-09-25] MEDS: oxyCODONE HCL 5 MG CAP PO PRN (04:07)
[2017-09-25 06:18] LABS: PLATELET COUNT, AUTOMATED 141 K/uL (150-450)
[2017-09-25 07:32] VITALS: BP 102/66
--- NOTE | 2017-09-25 08:21 | General Surgery Progress Note ---
Subjective Progress Notes Subjective "i feel better" no abd pain no fevers Physical Exam Vital Signs Date Time Temp Pulse Resp B/P (MAP) Pulse Ox O2 Delivery O2 Flow Rate FiO2 09/25/17 07:47 96 Room Air 09/25/17 07:32 98.4 55 20 102/66 (78) 1.0 General Appearance: Alert, No Acute Distress, Afebrile Neuro: No Gross deficits ENT: Normal Cardiovascular: Normal Rhythm & Peripheral Pulses Respiratory: No Respiratory Distress GI: Soft and Non-Tender (no tenderness in RUQ) Extremities: Perfused Psych: Alert & Oriented X3, Appropriate Mood & Affect Result Diagram: 09/25/1752409/25/17524 Monitor Interpretation: Normal Sinus Rhythm Assessment and Plan Problems: (1) Colitis Status: Acute Assessment & Plan: recommend advancing diet abdomen is soft ok to stop abx needs outpatient colonoscopy (2) Cholelithiases Status: Chronic Assessment & Plan: patient will need outpatient cholecystectomy when cleared by her lucerne farmer I will sign off today. Please call: [phone] with questions or concerns. (3) Ureterolithiasis Assessment & Plan: Per urology. Central Venous Access Medical Necessity for Access: IV Access, Medication Administration Exam Sepsis Risk: No Definite Risk BLANCHE ANDERSON MD Sep 25, 2017 08:21
[2017-09-25] MEDS ORDERED: PANTOPRAZOLE SOD 40 MG TABEC PO SCH (09:00)
[2017-09-25] MEDS ORDERED: predniSONE 5 MG TAB PO SCH (09:00)
[2017-09-25] MEDS ORDERED: METOPROLOL SUCC XL 50 MG TABCR 50 MG TAB.ER.24H PO SCH (09:00)
[2017-09-25] MEDS ORDERED: LEFLUNOMIDE 20 MG TAB PO SCH (09:00)
[2017-09-25] MEDS ORDERED: LISINOPRIL 5 MG TAB PO SCH (09:00)
[2017-09-25] MEDS: sulfaSALAzine 500 MG TAB PO SCH (09:02)
[2017-09-25] MEDS ORDERED: CEPH500T7 PO (10:29)
[2017-09-25] MEDS ORDERED: OXYC-373 PO (10:31)
--- NOTE | 2017-09-25 10:38 | Hospitalist Depart ---
Discharge Summary Reason for Hosp/Final Diag: (1) Acute pyelonephritis Status: Acute Hospital Course & Plan: She did present with flank pain. Her CT scan did show an obstructing stone of the left and her urinalysis was consistent with infection. She was started on empiric treatment with Zosyn. Dr. Graff was consulted and placed a ureteral stent. Her urine culture is growing a gram negative patti. She will discharge on oral Keflex and follow up with Dr. Graff as instructed. (2) Hydronephrosis concurrent with and due to calculi of kidney and ureter Status: Chronic Hospital Course & Plan: As above. (3) Acute colitis Status: Acute Hospital Course & Plan: She was evaluated by general surgery. No specific recommendations were made. Her last colonoscopy was reported to be 4yrs ago. (4) Cholelithiases Status: Chronic Hospital Course & Plan: General surgery did recommend that she follow up for gallbladder removal. Departure Latest Vital Signs Vital Signs 09/25/17 09/25/17 07:32 07:47 Temp 98.4 Pulse 55 Resp 20 B/P (MAP) 102/66 (78) Pulse Ox 96 O2 Delivery Room Air O2 Flow Rate 1.0 Weight (Pounds): 168 Result Diagram: 09/25/1752409/25/17524 Condition: Improved Discharge: Home, Self Care Discharge Instructions Home Meds Active Scripts Oxycodone Hcl/Acetaminophen (OXYCODONE-ACETAMINOPHEN 5-325) 1 Each Tablet, 1 EACH PO Q6H Y for PAIN, #20 TAB Prov:MARY BAH DO 09/25/17 Cephalexin 500 Mg Tab (KEFLEX 500 MG TAB) 500 Mg Tablet, 500 MG PO Q6H, #28 TAB Prov:MARY BAH DO 09/25/17 Reported Medications Aspirin (Lo-Dose Aspirin EC) 81 Mg Tablet., EACH EAR DAILY 09/24/17 Ticagrelor (BRILINTA) 90 Mg Tablet, 90 MG PO BID 09/24/17 Prednisone 10 Mg Tab (PREDNISONE 10 MG TAB) 10 Mg Tablet, 5 MG PO QDAY, TAB 01/16/15 Sulfasalazine (SULFASALAZINE) 500 Mg Tablet, 500 MG PO BID 01/16/15 Leflunomide (LEFLUNOMIDE) 20 Mg Tablet, 20 MG PO DAILY 01/16/15 Pantoprazole Sodium (PANTOPRAZOLE SODIUM) 40 Mg Tablet.dr, 40 MG PO QDAY, TAB.SR 01/16/15 Discontinued Reported Medications Metoprolol Succinate (METOPROLOL SUCCINATE) 50 Mg Tab.er.24h, 1 TAB PO QDAY, TAB 01/16/15 Lisinopril (LISINOPRIL) 5 Mg Tablet, 5 MG PO QDAY, TAB 01/16/15 Hydrochlorothiazide (HYDROCHLOROTHIAZIDE) 25 Mg Tablet, 1 TAB PO QDAY, TAB 04/14/17 Discontinued Scripts Promethazine Hcl (PROMETHAZINE HCL) 25 Mg Tablet, 25 MG PO Q8H Y for NAUSEA/ VOMITING, #12 TAB Prov:MANUEL MURRAY PA-C 04/04/17 Oxycodone Hcl/Acetaminophen (PERCOCET 10-325 MG TABLET) 1 Each Tablet, 1 EACH PO Q4H Y for PAIN, #20 TAB Prov:NAILA PRETTY DO 08/06/15 Diet: Regular Activity: As Tolerated Copies to: ANURADHA GRAFF MD Venous Thromboembolism Antithrombotics Is Pt On Any Antithrombotics?: No MARY BAH DO Sep 25, 2017 10:37
== END 2017-09-25 11:30 | disposition home or self-care (01) | DRG 690 ==
LOC: ER 10:53 → OR 15:48 → MED 18:00
PROVIDERS: ADMIT Urology; ATTEND Urology
PROC: BT1FYZZ Fluoroscopy of Left Kidney, Ureter and Bladder using Other Contrast (ICD-10-PCS; 2017-09-24)
PROC: 0T778DZ Dilation of Left Ureter with Intraluminal Device, Via Natural or Artificial Opening Endoscopic (ICD-10-PCS; principal; 2017-09-24 16:35)
DX: N13.6 Pyonephrosis (principal); K52.1 Toxic gastroenteritis and colitis; Z95.5 Presence of coronary angioplasty implant and graft; Z90.89 Acquired absence of other organs; I25.2 Old myocardial infarction; M06.9 Rheumatoid arthritis, unspecified; B96.20 Unspecified Escherichia coli [E. coli] as the cause of diseases classified elsewhere; I10 Essential (primary) hypertension; K21.9 Gastro-esophageal reflux disease without esophagitis; Z90.710 Acquired absence of both cervix and uterus; I25.10 Atherosclerotic heart disease of native coronary artery without angina pectoris; Z79.01 Long term (current) use of anticoagulants; Z79.82 Long term (current) use of aspirin; Z79.52 Long term (current) use of systemic steroids; K80.20 Calculus of gallbladder without cholecystitis without obstruction
CPT/HCPCS: 36415; 74177; 76000; 76705; 81001; 82040; 82247; 82274; 82310; 82374; 82435; 82565; 82947; 83605; 83690; 84075; 84132; 84155; 84295; 84450; 84460; 84484; 84520; 85025; 87077; 87088; 87186; 93005; C1758; C1769; C2617; J0330; J1100; J1956; J2405; J2543; J2704; J3010; J3490; J7030; J7050; J7120; J7512; Q9966; Q9967

== ENCOUNTER 2017-12-05 01:23 | Day surgery (SDC) | payer MEDICARE, MEDICAID ==
[2017-12-02 07:32] LABS: PLATELET COUNT, AUTOMATED 190 K/uL (150-450)
[2017-12-02 07:42] LABS: INR 0.95
--- NOTE | 2017-12-02 15:12 | HISTORY AND PHYSICAL ---
DATE OF ADMISSION: December 05, 2017 CHIEF COMPLAINT Left kidney stone with indwelling stent. HISTORY OF PRESENT ILLNESS The patient is a 57-year-old white female who is status post left double-J ureteral stent placement on September 24, 2017, after presenting to the emergency room with diffuse abdominal pain. At that time she was noted to have a 1 cm stone in her left UPJ with some moderate hydronephrosis. At that time her creatinine was 0.8. She is now being returned to the operating room for planned stent removal with ureteroscopy and possible extracorporeal shock wave lithotomy. PAST MEDICAL HISTORY * Myocardial infarction status post stent placement in April,. * Hypertension. * Gallbladder disease. * Gastroesophageal reflux disease. * Rheumatoid arthritis. * History of alcohol abuse. PAST SURGICAL HISTORY * Hysterectomy. * Appendectomy. * Cardiac catheterization with a stent placement April,. * Bilateral cataracts. * Left ureteral stent placement. ALLERGIES No known drug allergies. CURRENT MEDICATIONS * Hydrochlorothiazide. * Lisinopril. * Metoprolol. * Omeprazole. * Prednisone. * Arava. * Lipitor. * Nitrostat p.r.n. * Protonix. * Sulfasalazine. * Brilinta which has been held. * Aspirin. SOCIAL HISTORY The patient lives in [place], [place]. She is . REVIEW OF SYSTEMS The patient denies chest pain, shortness of breath, nausea, vomiting, fever, chills, productive cough, liver disease or bleeding disorders. PHYSICAL EXAMINATION GENERAL: The patient is a well-developed, well nourished white female in no acute distress. HEENT: Normocephalic/atraumatic. CHEST: Clear to auscultation bilaterally. CV: Regular rate and rhythm. ABDOMEN: Soft, nontender. No masses palpated. : Deferred to OR. EXTREMITIES: Without clubbing, cyanosis or edema. NEURO: Nonfocal. ASSESSMENT This is a 57-year-old white female with a 1 cm left UPJ stone with indwelling ureteral stent. She has currently her antiplatelet therapy Brilinta, but has continued on her Aspirin therapy. PLAN We will perform anesthetic cystoscopy, stent removal with possible replacement and/or ureteroscopy, possible extracorporeal shock wave lithotripsy. [facility] HOSPITALSandy
[~2017-12-05] VITALS: Ht 157.5 cm; Wt 70.3 kg
[~2017-12-05 01:23] MED LIST changes: +ASPI-1167 EACH EAR; +ATR80PT PO; +CEPH500T7 PO; +LISI-362 PO; +OXYC-373 PO; +PRE1 PO; +TICA90TA PO
[2017-12-05] MEDS ORDERED: MIDAZOLAM 2 MG/2 ML VIAL IVP PRN (06:30)
[2017-12-05] MEDS ORDERED: ceFAZolin(*) 1 GM VIAL 1 GM in NS(*) 0.9% 100 ML ADDVANT BAG 100 ML IVPB ONE (06:30)
[2017-12-05] MEDS ORDERED: NORMOSOL R SOLN(*) 1000 ML BAG 1,000 ML IV PRN (06:30)
[2017-12-05 06:32] VITALS: BP 133/89
[2017-12-05] MEDS ORDERED: LIDOCAINE/SOD BICARB 8.4% SYR ID ONE (07:30)
[2017-12-05] MEDS ORDERED: ONDANSETRON 4 MG/2 ML VIAL ONE (08:16)
[2017-12-05] MEDS ORDERED: PROPOFOL EMUL(*) 10MG/ML 20 ML 0 ML ONE (08:16)
[2017-12-05] MEDS ORDERED: DEXAMETHASONE SOD 4 MG/ML VIAL ONE (08:16)
[2017-12-05] MEDS ORDERED: LIDOCAINE MPF 1% 5 ML VIAL ONE (08:16)
[2017-12-05] MEDS ORDERED: fentaNYL CITR 100 MCG/2 ML AMP ONE ×2 (08:18→10:33)
[2017-12-05] MEDS ORDERED: KETAMINE HCL 200 MG/20 ML MDV ONE ×2 (08:29→11:18)
--- NOTE | 2017-12-05 09:05 | RADIOLOGY IMAGING REPORT ---
FACILITY: [facility] [place] PATIENT NAME: Kourtney Huffman : 1960 MR: [id number] V: [id number] EXAM DATE: ORDERING PHYSICIAN: ANURADHA BURKETT TECHNOLOGIST: [place] [facility] [place] Kourtney Huffman : 1960 Visit/Account:[id number] Date of Sevice: 12/05/2017 CT abdomen pelvis without contrast HISTORY: Preop kidney stones TECHNIQUE: CT abdomen and pelvis without intravenous contrast. Contiguous axial images of the abdom en and pelvis was performed from the lung bases to the symphysis pubis. One of the following dose optimization techniques was utilized in the performance of this exam: Autom ated exposure control; adjustment of the mA and/or kV according to the patient's size; or use of an i terative reconstruction technique. Specific details can be referenced in the facility's radiology C T exam operational policy. CONTRAST: None. COMPARISON: CT scan 09/24/2017 FINDINGS: Visualized lung bases: Negative. Hepatobiliary: 2.3 x 1.7 cm gallstone is noted in the gallbladder. No secondary signs of cholecysti tis or biliary obstruction. 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 Adrenals: Negative. Kidneys/: Left ureteral stent is in good position. There are some inflammatory changes around the left ureter. No evidence for hydronephrosis. Air is noted in the left collecting system and bladde r. 7 x 10 x 4 mm stone is noted lower pole left kidney. No visualized stones on the right. Small right renal cortical cyst were better characterized on prior study. Cyst in the superior media l pole right kidney measures 9 mm. Air is noted in the vagina. Pancreas: Negative. GI: There is diverticulosis but no bowel obstruction. Perianal fluid collection is once again seen image 174 measures 2 x 1.8 cm. Please correlate with physical exam. Previously described colitis in the hepatic flexure has resolved. Vessels/spaces/nodes: Negative. Bones/soft tissues: Degenerative changes are noted. IMPRESSION: 1. 10 x 7 x 4 mm nonobstructing stone lower pole left kidney. 2. Left ureteral stent is in good position. Some inflammatory changes noted around the left ureter and left collecting system. There is fullness of left collecting system but no evidence for hydronep hrosis. Air is noted in the bladder and left collecting system. 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 4. Stable perianal fluid collection measuring 2 x 1.8 cm unchanged from prior. Please correlate wit h physical exam. Report Dictated By: Dileep Castro MD at 12/05/2017 8:35 AM Report E-Signed By: Dileep Castro MD at 12/05/2017 9:00 AM WSN:[email or web address]
[2017-12-05] MEDS ORDERED: IOPAMIDOL-200 50 ML VIAL IS ONE (09:08)
[2017-12-05] MEDS ORDERED: HYDROCORTISONE 100 MG/2 ML IVP ONE (09:20)
[2017-12-05] MEDS ORDERED: KETOROLAC 30 MG/ML VIAL ONE (10:33)
[2017-12-05] MEDS ORDERED: BELLADONNA ALKALOIDS/OPIUM 30 MG SUPP PR ONE (10:51)
[2017-12-05] MEDS ORDERED: HYDR-4309 PO (11:39)
[2017-12-05] MEDS ORDERED: DOCU-416 PO (11:40)
[2017-12-05] MEDS ORDERED: IBUP600T22 PO (11:41)
[2017-12-05] MEDS ORDERED: PHEN200T32 PO (11:41)
[2017-12-05] MEDS ORDERED: OXYB10TA16 PO (11:42)
[2017-12-05] MEDS ORDERED: PROPOFOL EMUL(*) 10MG/ML 20 ML 20 ML ONE (11:47)
[2017-12-05 12:00] VITALS: BP 129/86
[2017-12-05 12:15] VITALS: BP 130/52
[2017-12-05] MEDS ORDERED: APAP/HYDROCODONE 325/5 TAB PO ONE (12:20)
[2017-12-05 12:38] VITALS: BP 139/91
[2017-12-05 12:40] VITALS: BP 143/84
--- NOTE | 2017-12-05 13:13 | RADIOLOGY IMAGING REPORT ---
FACILITY: [facility] [place] PATIENT NAME: Kourtney Huffman : 1960 MR: [id number] V: [id number] EXAM DATE: ORDERING PHYSICIAN: ANURADHA BURKETT TECHNOLOGIST: Location: [facility] - [place] Patient: Kourtney Huffman : 1960 Visit/Account:[id number] Date of Sevice: 12/05/2017 C-ARM FLUORO 1 HR HISTORY: HEMATURIA WITH STONE FLUOROSCOPIC IMAGES FINDINGS: Spot fluoroscopic images demonstrates opacification wire manipulation and placement of a left uretera l double-J stent. IMPRESSION: 1. Intraoperative films as described. Fluoroscopic time of 34 seconds. AK 22.3mGy Report Dictated By: Bladimir Blackwood MD at 12/05/2017 1:08 PM Report E-Signed By: Bladimir Blackwood MD at 12/05/2017 1:09 PM WSN:[email or web address]
--- NOTE | 2017-12-05 13:42 | PIERCE CYSTOSCOPY ---
EVENT DATE: December 05, 2017 SURGEON: Wicho Graff MD ANESTHESIOLOGIST: Ibrahima Hensley M.D. ANESTHESIA: property assessment monitor: Staff PREOPERATIVE DIAGNOSES 1 cm left mid pole calculus with indwelling stent. POSTOPERATIVE DIAGNOSES 1 cm left mid pole calculus with indwelling stent. PROCEDURES PERFORMED 1. Cystoscopy. 2. Grasping and removal of left JJ stent. 3. Left flexible uteroscopy with laser fragmentation of stone and removing of fragments. 4. Left internal JJ ureteral stent placement. ESTIMATED BLOOD LOSS Minimal. IV FLUIDS Crystalloids. DRAINS 6-Sierra Leonean x 26 cm Contour stent on left. . PATHOLOGY Stone fragments sent for analysis. COMPLICATIONS None. CONDITION The patient was taken to recovery room awake and in stable condition. STATEMENT OF MEDICAL NECESSITY The patient is a 57-year-old white female who originally presented with a UTI and left kidney stone measuring approximately 1 cm and underwent left JJ ureteral stent placement on September 24. The patient was subsequently treated for urinary tract infection and is now being returned to the operating room for definitive stone treatment. She has been seen and cleared by her lode miner, who recommended she would be able to stop her Brilinta but continue her aspirin. Therefore, she is now being brought to the operating room for ureteroscopy with stone manipulation and fragmentation. DESCRIPTION OF OPERATION PERFORMED The patient was brought to the operating room and after general anesthetic was obtained, she was placed in the dorsal lithotomy position and prepped and draped in the usual sterile manner. Anesthetic cystoscopy was performed with the 21- [place] rigid scope and 30-degree lens. Upon entering the bladder, a stent was seen emanating from the left ureteral orifice. There was a significant amount of stone encrustation on the distal end. The distal end was grasped and brought out through the meatus. A 0.35 wire was advanced in the lumen of the stent. However, it was occluded secondary to encrustations and, therefore, the stent was grasped and gently removed intact. Following this, a 6-[place]an opening access catheter was advanced into the left ureteral orifice at approximately the mid ureteral level. Retrograde pyelogram was then performed, which showed a normal caliceal system with mild dilation of the ureter. The stone was seen in the mid pole calyx. At this point, a 0.35 wire was advanced into the lumen of the access catheter, where it was curled in the upper pole calyx. It was then secured to the drapes as a safety wire. Following this, the access catheter was advanced next to the safety wire and used to place another wire, which was advanced up to the renal pelvis by fluoroscopy. This wire was then used to place a ureteral navigator access sheath, measuring 11 x 13 x 36 cm in length. This was advanced up to the level of the UPJ. The working wire and internal obturator sheath was removed. The flexible Rosenberg uteroscope was advanced up the access sheath to the kidney. The stone was seen in a mid pole calyx. It was at regular surface and dark morin in color. The stone was grasped with a 8-[place]an Keshav basket, where it was manipulated from a mid pole to upper pole calyx. It was then disengaged there and the Holmium laser fiber with a 200-micron fiber was then introduced and laser lithotripsy of the stone was performed under direct vision in the upper pole calyx on the stone dusting settings. The stone was relatively soft and responded well to treatment. After it was dusted, the laser fiber was removed and the 8-[place]an Keshav basket again reintroduced. There were two to three remaining stone fragments of approximately 2x3 mm in size, which was subsequently grasped and removed as well as collections of dust in the dependent portion of the caliceal system. These were also grasped and removed. At this point, the Keshav basket was removed. Ureteroscopy of upper, lower and mid pole calices were then sequentially performed. No remaining stone fragments could be identified except for some remaining small dust-like particles. At this point, pull-out uteroscopy was performed by removing the access sheath along with the scope at the same time. There was no evidence of ureteral injury or stones along the course of the ureter. At this point, the safety wire was then backloaded into the cystoscope and this wire was used to place a 6-[place]an x 26 cm Contour stent. After removing the wire, she was noted to have good curling in upper pole lillie by fluoroscopy and good curling in the bladder by direct vision. The patient's bladder was drained at the conclusion of the procedure. The stone fragments were collected and sent for analysis. A B&O suppository was given per rectum at the conclusion of the case. She was awakened in the operating room and taken to the recovery area in stable condition. PLAN We will allow the patient to be discharged home today on [place], Colace, Pyridium, Ditropan and Motrin. We will see her in the Urology Clinic in one to two weeks for stent removal to be followed by imaging test approximately four weeks later to ensure resolution of stones and no remaining hydronephrosis. We will also discuss metabolic evaluation at that time. RAPHAEL
== END 2017-12-05 12:00 | disposition home or self-care (01) ==
LOC: OR 01:23
PROVIDERS: ATTEND Urology
DX: N20.0 Calculus of kidney (principal); I25.2 Old myocardial infarction; I10 Essential (primary) hypertension; K21.9 Gastro-esophageal reflux disease without esophagitis; K82.9 Disease of gallbladder, unspecified; Z79.82 Long term (current) use of aspirin; Z79.899 Other long term (current) drug therapy
CPT/HCPCS: 36415; 52332; 52352; 81001; 82365; 85025; 85610; 87077; 87088; 87186; 88300; A9270; J0690; J1100; J1720; J1885; J2001; J2250; J2405; J2704; J3010; J3490; J7050; Q9966; 74176; 76000; 82310; 82374; 82435; 82565; 82947; 84132; 84295; 84520

== ENCOUNTER → 2018-01-24 | Outpatient (CLI) | payer MEDICARE, MEDICAID ==
[~2018-01-24] MED LIST changes: +DOCU-416 PO; +HYDR-653 PO; +IBUP600T22 PO; +OXYB10TA16 PO; +PHEN200T32 PO
--- NOTE | 2018-01-24 09:12 | RADIOLOGY IMAGING REPORT ---
FACILITY: [facility] - [place] PATIENT NAME: Kourtney Huffman : 1960 MR: [id number] V: [id number] EXAM DATE: ORDERING PHYSICIAN: ANURADHA BURKETT TECHNOLOGIST: Location: [facility] - [place] Patient: Kourtney Huffman : 1960 Visit/Account:[id number] Date of Sevice: 01/24/2018 ABDOMEN PELVIS ESWL CYSTO W/O HISTORY: Kidney stone follow-up TECHNIQUE: Axial images acquired through the abdomen/pelvis. Coronal and sagittal reformatting also performed. No IV contrast administered. COMPARISON: December 05, 2017 September 24, 2017 FINDINGS: Visualized lung bases: Negative. Hepatobiliary: Large gallstone again noted. No evidence of biliary ductal dilatation Spleen: There Is a 2.2 x 1.7 cm masslike area in the mid spleen with hyper dense peripheral rim. Thi s is relatively unchanged in size when compared to the prior CT from September 24, 2017 Adrenals: Negative. Pancreas: Negative. Kidneys ureters and bladder: Subcentimeter cortical hypodensities in the upper poles of both kidneys appears relatively unchanged. There is moderate perinephric stranding bilaterally. There is no demo nstration of urolithiasis, hydronephrosis or hydroureter. Previously noted left ureteral stent is no longer seen . Genitalia: Negative. GI: There is diverticulosis left-sided colon although no CT evidence of acute diverticulitis. There is a small hiatal hernia present. Prominent perianal fluid/ soft tissue density again noted clinica l correlation needed . Vessels/spaces/nodes: Negative. Bones/soft tissues: Spondylotic changes of the thoracal lumbar spine again noted Additional findings: None pertinent. IMPRESSION: Cholelithiasis 2.2 x 1.7 cm masslike area in the mid spleen with a dense peripheral rim appears well totally unchang ed in size when compared the prior study. The differential diagnosis would include an old infarct, s plenic mass or infection Moderate perinephric stranding bilaterally. There is no demonstration of urolithiasis, hydronephrosi s or hydroureter Diverticulosis left-sided colon Small hiatal hernia Prominent perianal fluid/soft tissue density is again noted appearing similar to the prior study alth ough clinical correlation is needed Report Dictated By: Gavi Rider MD at 01/24/2018 8:56 AM Report E-Signed By: Gavi Rider MD at 01/24/2018 9:09 AM WSN:[email or web address]
== END ==
LOC: CT 07:29
PROVIDERS: ATTEND Urology
DX: K80.20 Calculus of gallbladder without cholecystitis without obstruction (principal); K57.30 Diverticulosis of large intestine without perforation or abscess without bleeding; K44.9 Diaphragmatic hernia without obstruction or gangrene; M47.895 Other spondylosis, thoracolumbar region
CPT/HCPCS: 74176

== ENCOUNTER → 2018-05-09 | Outpatient (CLI) | payer MEDICARE, MEDICAID ==
[2018-05-09 09:55] LABS: LDL CHOLESTEROL 70 mg/dl
== END ==
LOC: LAB 08:48
PROVIDERS: ATTEND Internal Medicine
DX: I25.10 Atherosclerotic heart disease of native coronary artery without angina pectoris (principal); E78.00 Pure hypercholesterolemia, unspecified
CPT/HCPCS: 36415; 82040; 82247; 82310; 82374; 82435; 82465; 82565; 82947; 83718; 84075; 84132; 84155; 84295; 84450; 84460; 84478; 84520